=== PATIENT | female | born 1945 | race Caucasian/White ===

== ENCOUNTER 2020-04-10 10:57 | Emergency (ER) | payer MEDICARE, BC ==
[~2020-04-10] VITALS: Ht 157.5 cm; Wt 59.6 kg
[~2020-04-10 10:57] MED LIST: ADV50100 IH; ASPI-611 PO; ATOR40TA PO; CLON-527 PO; DULO-31 PO; HYDR12.522 PO; OMEP20TA5 PO; PER10325T PO; QUIN10TA PO; SERT-153 PO; SYN0.025T PO; VENL-190 PO
[2020-04-10] MEDS ORDERED: orphenadrine citrate 60mg/2ml inj. IM ONE (11:50)
[2020-04-10] MEDS ORDERED: ketorolac tromethamine 15mg/ml inj. IM ONE (11:50)
[2020-04-10] MEDS ORDERED: CYCL-1 PO (12:05)
[2020-04-10] MEDS ORDERED: ACET-1025 PO (12:05)
[2020-04-10] MEDS ORDERED: acetaminophen 325mg tablet PO ONE (12:55)
[2020-04-10 13:10] VITALS: BP 158/75
== END 2020-04-10 13:26 | disposition home or self-care (01) ==
LOC: ER 10:58
DX: S29.012A Strain of muscle and tendon of back wall of thorax, initial encounter (principal); G43.909 Migraine, unspecified, not intractable, without status migrainosus; E78.00 Pure hypercholesterolemia, unspecified; I10 Essential (primary) hypertension; Z98.890 Other specified postprocedural states; Z79.82 Long term (current) use of aspirin; Z79.899 Other long term (current) drug therapy; X58.XXXA Exposure to other specified factors, initial encounter; Y93.89 Activity, other specified; Y92.89 Other specified places as the place of occurrence of the external cause; Y99.8 Other external cause status
CPT/HCPCS: 71046; 72074; 96372; 99284; J2360

== ENCOUNTER 2020-05-06 12:13 | Emergency (ER) | payer MEDICARE, BC ==
[~2020-05-06] VITALS: Ht 157.5 cm; Wt 58.0 kg
[~2020-05-06 12:13] MED LIST changes: +CYCL-1 PO
[2020-05-06] MEDS ORDERED: HYDROcodone/acetaminophen 5mg/325mg tablet PO ONE (13:15)
[2020-05-06] MEDS ORDERED: DOCU-148 PO (13:54)
[2020-05-06] MEDS ORDERED: HYDR-3965 PO (13:54)
[2020-05-06] MEDS ORDERED: ONDA4TAB6 PO (13:54)
[2020-05-06 14:16] VITALS: BP 150/75
== END 2020-05-06 14:17 | disposition home or self-care (01) ==
LOC: ER 12:14
DX: S22.42XA Multiple fractures of ribs, left side, initial encounter for closed fracture (principal); G43.909 Migraine, unspecified, not intractable, without status migrainosus; I10 Essential (primary) hypertension; E78.00 Pure hypercholesterolemia, unspecified; Z79.82 Long term (current) use of aspirin; Z79.899 Other long term (current) drug therapy; W19.XXXA Unspecified fall, initial encounter; Y93.01 Activity, walking, marching and hiking; Y92.098 Other place in other non-institutional residence as the place of occurrence of the external cause; Y99.8 Other external cause status
CPT/HCPCS: 71101; 99284

== ENCOUNTER 2020-05-13 10:40 | Emergency (ER) | payer MEDICARE, BC ==
[~2020-05-13] VITALS: Ht 157.5 cm; Wt 65.1 kg
[~2020-05-13 10:40] MED LIST changes: +DOCU-148 PO; +HYDR-3965 PO; +ONDA4TAB6 PO
[2020-05-13 11:00] VITALS: BP 169/76
[2020-05-13] MEDS ORDERED: morphine 4 MG/ML inj SYRINge IM ONE (11:05)
[2020-05-13] MEDS ORDERED: cyclobenzaprine 10mg tablet PO ONE (11:05)
[2020-05-13] MEDS ORDERED: CYCL-1 PO (11:45)
[2020-05-13] MEDS ORDERED: HYDR-3965 PO (11:45)
== END 2020-05-13 12:00 | disposition home or self-care (01) ==
LOC: ER 10:41
DX: S22.42XA Multiple fractures of ribs, left side, initial encounter for closed fracture (principal); G43.909 Migraine, unspecified, not intractable, without status migrainosus; I10 Essential (primary) hypertension; E78.00 Pure hypercholesterolemia, unspecified; Z98.890 Other specified postprocedural states; Z79.82 Long term (current) use of aspirin; Z79.899 Other long term (current) drug therapy; W19.XXXA Unspecified fall, initial encounter; Y93.89 Activity, other specified; Y92.89 Other specified places as the place of occurrence of the external cause; Y99.8 Other external cause status
CPT/HCPCS: 71045; 96372; 99283; J2270

== ENCOUNTER 2021-12-07 18:12 | Emergency (ER) | payer MEDICARE, BC ==
[~2021-12-07 18:12] MED LIST changes: -HYDR-3965 PO; +OMEP20TA43 PO; -OMEP20TA5 PO
== END 2021-12-07 21:05 | disposition left against medical advice (07) ==
LOC: ER 18:12
DX: T14.8XXA Other injury of unspecified body region, initial encounter (principal); Z53.21 Procedure and treatment not carried out due to patient leaving prior to being seen by health care provider; W54.0XXA Bitten by dog, initial encounter; Y93.89 Activity, other specified; Y92.89 Other specified places as the place of occurrence of the external cause; Y99.8 Other external cause status

== ENCOUNTER 2021-12-08 01:29 | Emergency (ER) | payer MEDICARE, BC ==
[~2021-12-08] VITALS: Ht 157.5 cm; Wt 77.3 kg
[2021-12-08 01:38] VITALS: BP 144/71
== END 2021-12-08 05:59 | disposition left against medical advice (07) ==
LOC: ER 01:29
DX: M79.645 Pain in left finger(s) (principal); Z53.21 Procedure and treatment not carried out due to patient leaving prior to being seen by health care provider

== ENCOUNTER 2022-02-01 16:37 | Emergency (ER) | payer MEDICARE, BC ==
[~2022-02-01] VITALS: Ht 157.5 cm; Wt 57.7 kg
[2022-02-01] MEDS ORDERED: morphine 4 MG/ML inj SYRINge IM ONE (19:30)
[2022-02-01] MEDS ORDERED: HYDROcodone/acetaminophen 10/325mg tab PO ONE (19:30)
[2022-02-01] MEDS ORDERED: HYDR-3972 PO (19:38)
[2022-02-01 20:01] VITALS: BP 156/82
== END 2022-02-01 20:02 | disposition home or self-care (01) ==
LOC: ER 16:37
DX: M25.511 Pain in right shoulder (principal); R51.9 Headache, unspecified; E78.00 Pure hypercholesterolemia, unspecified; I10 Essential (primary) hypertension; G43.909 Migraine, unspecified, not intractable, without status migrainosus; Z88.6 Allergy status to analgesic agent; Z79.899 Other long term (current) drug therapy; Z79.1 Long term (current) use of non-steroidal anti-inflammatories (NSAID); W19.XXXA Unspecified fall, initial encounter; Y93.89 Activity, other specified; Y92.89 Other specified places as the place of occurrence of the external cause; Y99.8 Other external cause status
CPT/HCPCS: 73030; 96372; 99284; J2270; A4565

== ENCOUNTER 2022-04-17 06:19 | Emergency (ER) | payer MEDICARE, BC ==
[~2022-04-17] VITALS: Ht 157.5 cm; Wt 60.0 kg
[2022-04-17] MEDS ORDERED: naproxen 500mg tablet PO ONE (08:40)
--- NOTE | 2022-04-17 09:30 | NUR ---
NOTIFIED THE PROVIDER {SAMUEL } THAT PT RECEVIEVD THE PAIN MED BEFORE WAS NOT EFFECTIVE ,PT IS VERY TEARFULL AT THIS TIME ,VERBAL ORDER TO GIVE NORCO5/325 MG PO ONCE FOR PAIN .WILL FOLLOW THE ORDERS.
[2022-04-17] MEDS ORDERED: HYDROcodone/acetaminophen 5mg/325mg tablet PO ONE (09:40)
--- NOTE | 2022-04-17 10:24 | NUR ---
pt taken to get CT
[2022-04-17 11:34] LABS: CLARITY,URINE SLIGHTLY CLOUDY (Clear); COLOR,URINE YELLOW (Yellow); GLUCOSE, URINE NEGATIVE (Neg); KETONES,URINE NEGATIVE (Neg); LEUKOCYTE ESTERASE ,URINE NEGATIVE (Neg); NITRITES, URINE NEGATIVE (Neg); OCCULT BLOOD,URINE NEGATIVE (Neg); PH,URINE 5.5 (4.8-8.0); PROTEIN,URINE NEGATIVE (Neg); UROBILINOGEN,URINE 0.2 E.U/dL (0.2-1.0)
[2022-04-17 11:45] LABS: UA COLLECTION TYPE NON-SPECIFIED
[2022-04-17 11:48] LABS: SQUAMOUS EPITHELIAL CELL,UR FEW /LPF (FEW)
[2022-04-17 11:51] LABS: BACTERIA,URINE FEW /HPF (Neg); MUCUS STRANDS FEW /LPF (Neg); RBC,URINE 0-2 /HPF (0-2); WBC,URINE 0-4 /HPF (0-4)
[2022-04-17] MEDS ORDERED: MELO-102 PO (12:28)
[2022-04-17 12:50] VITALS: BP 150/94
== END 2022-04-17 13:30 | disposition home or self-care (01) ==
LOC: ER 06:20
DX: R10.31 Right lower quadrant pain (principal); G43.909 Migraine, unspecified, not intractable, without status migrainosus; E78.00 Pure hypercholesterolemia, unspecified; I10 Essential (primary) hypertension; G89.29 Other chronic pain; M54.50 Low back pain, unspecified
CPT/HCPCS: 71046; 72070; 72100; 74176; 81001; 99285

== ENCOUNTER 2023-02-02 12:26 | Emergency (ER) | payer MEDICARE, BC ==
[~2023-02-02] VITALS: Ht 157.5 cm; Wt 62.8 kg
[~2023-02-02 12:26] MED LIST changes: +MELO-102 PO
[2023-02-02] MEDS ORDERED: HYDROcodone/acetaminophen 10/325mg tab PO ONE ×2 (15:05→18:47)
[2023-02-02 18:07] VITALS: BP 180/75; PULSE 93; TEMP 98.2; O2SAT 96
[2023-02-02] MEDS ORDERED: HYDR-3972 PO (18:26)
[2023-02-02 19:04] VITALS: RESP 18
== END 2023-02-02 19:38 | disposition home or self-care (01) ==
LOC: ER 12:26
DX: S42.295A Other nondisplaced fracture of upper end of left humerus, initial encounter for closed fracture (principal); G43.909 Migraine, unspecified, not intractable, without status migrainosus; E78.00 Pure hypercholesterolemia, unspecified; I10 Essential (primary) hypertension; G89.29 Other chronic pain; Z96.652 Presence of left artificial knee joint; Z96.641 Presence of right artificial hip joint; Z79.82 Long term (current) use of aspirin; Z79.899 Other long term (current) drug therapy; W01.0XXA Fall on same level from slipping, tripping and stumbling without subsequent striking against object, initial encounter; Z91.81 History of falling; Y93.K1 Activity, walking an animal; Y92.89 Other specified places as the place of occurrence of the external cause; Y99.8 Other external cause status
CPT/HCPCS: 29105; 73030; 73060; 73200; 99284; 99285

== ENCOUNTER 2023-06-05 22:56 | Emergency (ER) | payer MEDICARE, BC ==
[~2023-06-05] VITALS: Ht 157.5 cm; Wt 61.7 kg
[2023-06-05 23:40] LABS: BASOPHILS % (AUTO) 0.3 % (0-1); EOSINOPHILS # (AUTO) 0.2 X10'3 (0-0.9); HEMATOCRIT 36.5 % (35.0-45.0); HEMOGLOBIN 12.2 g/dl (12.0-16.0); LYMPHOCYTES # (AUTO) 2.4 X10'3 (1.1-4.8); LYMPHOCYTES % (AUTO) 33.4 % (21-51); MEAN CORPUSCULAR HEMOGLOBIN 29.5 PG (27.0-31.0); MEAN CORPUSCULAR HGB CONC 33.3 g/dL (33.0-36.5); MEAN CORPUSCULAR VOLUME 88.6 FL (78-98); MEAN PLATELET VOLUME 8.3 FL (7.4-10.4); MONOCYTES # (AUTO) 0.5 X10'3 (0-0.9); MONOCYTES % (AUTO) 6.6 % (2-12); NEUTROPHILS % (AUTO) 56.7 % (42-75); PLATELET COUNT 226 X10'3 (140-440); RED BLOOD COUNT 4.13 X10'6 (4.20-5.60); RED CELL DISTRIBUTION WIDTH 12.9 % (11.5-14.5); WHITE BLOOD COUNT 7.1 X10'3 (4.5-11.0)
[2023-06-05 23:59] LABS: ALBUMIN 3.7 G/DL (3.4-5.0); ANION GAP 10 (8-16); BLOOD UREA NITROGEN 30 MG/DL (7-18); BUN/CREATININE RATIO 23.1 (10.0-20.0); CALCIUM 8.8 MG/DL (8.5-10.1); CHLORIDE 104 MMOL/L (99-107); GLUCOSE 78 MG/DL (70-104); POTASSIUM 4.1 MMOL/L (3.5-5.1); PRO BRAIN NATRIURETIC PEPTIDE 60 PG/ML (0-450); SODIUM 140 MMOL/L (135-145); TOTAL CARBON DIOXIDE 25.7 MMOL/L (24-32); eCRCL 28 ML/MIN; eGFR 40 ML/MIN
[2023-06-06] MEDS: normal saline 500ml IV soln 500 ML IV SCH (02:55)
[2023-06-06] MEDS ORDERED: iohexol 300mg/ml 100ml inj. ONE (03:12)
[2023-06-06] MEDS: ondansetron/PF 4mg/2ml inj IV ONE (03:25)
[2023-06-06] MEDS: morphine 2 MG/ML inj. syringe IV ONE ×2 (03:26→05:04)
[2023-06-06 03:59] LABS: ALANINE AMINOTRANSFERASE 17 U/L (12-78); ALBUMIN 3.4 G/DL (3.4-5.0); ALKALINE PHOSPHATASE 81 IU/L (46-116); ANION GAP 8 (8-16); ASPARTATE AMINO TRANSFERASE 17 U/L (10-37); BILIRUBIN,TOTAL 0.3 MG/DL (0.1-1.0); BLOOD UREA NITROGEN 32 MG/DL (7-18); BUN/CREATININE RATIO 20.8 (10.0-20.0); CALCIUM 8.8 MG/DL (8.5-10.1); CHLORIDE 106 MMOL/L (99-107); CREATININE 1.54 MG/DL (0.40-0.90); GLUCOSE 134 MG/DL (70-104); LIPASE 64 U/L (16-77); POTASSIUM 3.6 MMOL/L (3.5-5.1); SODIUM 141 MMOL/L (135-145); TOTAL CARBON DIOXIDE 27.4 MMOL/L (24-32); TOTAL PROTEIN 6.9 G/DL (6.4-8.2); eCRCL 23 ML/MIN; eGFR 32 ML/MIN
[2023-06-06 04:55] VITALS: TEMP 97.9
[2023-06-06] MEDS: piperacillin/tazo 3.375gm/50ml 50 ML IV SCH (05:05)
[2023-06-06] MEDS ORDERED: HYDR-3965 PO (05:17)
[2023-06-06 05:52] VITALS: BP 105/47; PULSE 84; RESP 14; O2SAT 96
== END 2023-06-06 05:58 | disposition home or self-care (01) ==
LOC: ER 22:58
DX: S20.213A Contusion of bilateral front wall of thorax, initial encounter (principal); I10 Essential (primary) hypertension; E78.00 Pure hypercholesterolemia, unspecified; Z79.899 Other long term (current) drug therapy; Z88.8 Allergy status to other drugs, medicaments and biological substances; W18.39XA Other fall on same level, initial encounter; Y93.89 Activity, other specified; Y92.89 Other specified places as the place of occurrence of the external cause; Y99.8 Other external cause status
CPT/HCPCS: 36415; 71045; 71260; 74177; 80048; 80053; 83605; 83690; 83880; 84484; 85025; 87040; 93005; 96361; 96374; 96375; 96376; 99285; J2270; J2405; J2543; J3490; J7030; J7040; Q9967

== ENCOUNTER 2024-05-13 16:51 | Emergency (ER) | payer MEDICARE, BC ==
[~2024-05-13] VITALS: Ht 157.5 cm; Wt 60.0 kg
[2024-05-13 16:59] VITALS: TEMP 98
[2024-05-13] MEDS: HYDROcodone/acetaminophen 10/325mg tab PO ONE (18:51)
[2024-05-13 18:58] VITALS: BP 133/62; PULSE 96; RESP 18; O2SAT 100
== END 2024-05-13 19:02 | disposition home or self-care (01) ==
LOC: ER 16:51
DX: M54.50 Low back pain, unspecified (principal); E78.00 Pure hypercholesterolemia, unspecified; I10 Essential (primary) hypertension; Z96.641 Presence of right artificial hip joint; Z96.652 Presence of left artificial knee joint; Z98.890 Other specified postprocedural states; Z79.82 Long term (current) use of aspirin
CPT/HCPCS: 72110; 99283